=== PATIENT | female | born 1970 | race Caucasian/White ===

== ENCOUNTER → 2023-12-16 08:41 | Outpatient (REF) | payer BC, SELFPAY | LOC: MRI 3T 08:41 | PROVIDERS: ATTENDING PHYSICIAN Psychiatry & Neurology Neurology; FAMILY PHYSICIAN Family Medicine | DX: I63.50 Cerebral infarction due to unspecified occlusion or stenosis of unspecified cerebral artery (principal) | CPT/HCPCS: 70551 ==

== ENCOUNTER → 2024-01-13 15:54 | Outpatient (REF) | payer BC, SELFPAY | LOC: RAD 15:54 | PROVIDERS: ATTENDING PHYSICIAN Family Medicine; FAMILY PHYSICIAN Family Medicine | DX: N95.0 Postmenopausal bleeding (principal); Z79.890 Hormone replacement therapy | CPT/HCPCS: 76830; 76856 ==

== ENCOUNTER → 2024-04-18 15:39 | Outpatient (REF) | payer BC, SELFPAY | LOC: RAD 15:39 | PROVIDERS: ATTENDING PHYSICIAN Family Medicine | DX: N83.201 Unspecified ovarian cyst, right side (principal) | CPT/HCPCS: 76830 ==

== ENCOUNTER → 2025-01-19 08:27 | Outpatient (REF) | payer BC, SELFPAY | LOC: RAD 08:27 | PROVIDERS: ATTENDING PHYSICIAN Family Medicine; FAMILY PHYSICIAN Family Medicine | DX: M85.89 Other specified disorders of bone density and structure, multiple sites (principal) | CPT/HCPCS: 77080 ==